=== PATIENT | male | born 1940 | race Caucasian/White ===

== ENCOUNTER 2017-01-07 23:06 | Emergency (ER) | payer OTHER ==
[~2017-01-07] VITALS: Ht 190.5 cm; Wt 106.2 kg
[~2017-01-07 23:06] MED LIST: CENTRUM SILVER1 EAC1 PO; COUMADIN PO; DILTIA XT120 MG PO; LANOXIN,DIGI0.125 MG PO; LEVOTHROID,S0.075 MG PO; METOPROLOL SUCC25 MG PO; PERCOCET 5/31 TABLET PO; PRAVASTATIN SOD80 MG PO; TYLENOL ARTHRI650 M2 PO
[2017-01-07 23:50] LABS: MCH 30.7 PG (29.0-34.0); MCHC 32.7 G/DL (30.0-36.0); MCV 93.8 FL (86-99); MEAN PLAT.VOLUME 9.6 uM^3 (9.0-12.4); PLATELET COUNT 156 K/uL (156-360); RBC DIS.WIDTH-CV 13.8 % (11.8-14.6); RED BLOOD COUNT 4.69 M/uL (4.00-5.50); WHITE BLOOD COUNT 10.9 K/uL (4.1-10.2)
[2017-01-07 23:59] LABS: CHLORIDE 106 mEq/L (99-109); POTASSIUM 4.2 mEq/L (3.7-5.4); SODIUM 142 mEq/L (136-147)
[2017-01-08 00:01] LABS: GLUCOSE 133 mg/dL (70-99)
[2017-01-08 00:02] LABS: ANION GAP 11 MEQ/L (2-14)
[2017-01-08 00:06] LABS: GFR ESTIMATE (CALCULATED) > 59 mL/min/; UREA NITROGEN (BUN) 15 mg/dL (9-23)
[2017-01-08 00:16] LABS: INTER. NORMALIZED RATIO 1.1; PROTHROMBIN TIME 11.2 (9.2-11.2); PTT 27.3 (25-32)
[2017-01-08 01:07] VITALS: BP 128/91
== END 2017-01-08 01:09 | disposition home or self-care (01) ==
LOC: EME 23:06 → RME 23:06
PROVIDERS: Physician Assistant
DX: K91.840 Postprocedural hemorrhage of a digestive system organ or structure following a digestive system procedure (principal); Z79.01 Long term (current) use of anticoagulants
CPT/HCPCS: 80048; 85027; 85610; 85730; 99281; 99284

== ENCOUNTER 2017-01-10 08:20 | Emergency (ER) | payer OTHER ==
[~2017-01-10] VITALS: Ht 190.5 cm; Wt 104.1 kg
[2017-01-10] MEDS ORDERED: CARDIZEM CD,CA240 MG PO (09:16)
[2017-01-10] MEDS ORDERED: XARELTO20 MG PO (09:16)
[2017-01-10] MEDS ORDERED: LANOXIN125 MCG PO (09:16)
[2017-01-10] MEDS ORDERED: OMEPRAZOLE20 MG PO (09:17)
[2017-01-10 09:22] LABS: HEMATOCRIT 43.1 % (38.0-50.0); MCH 30.7 PG (29.0-34.0); MCHC 32.7 G/DL (30.0-36.0); MCV 93.9 FL (86-99); MEAN PLAT.VOLUME 9.6 uM^3 (9.0-12.4); PLATELET COUNT 160 K/uL (156-360); RBC DIS.WIDTH-CV 13.2 % (11.8-14.6); RBC DIS.WIDTH-SD 45.1 % (39-53); RED BLOOD COUNT 4.59 M/uL (4.00-5.50)
[2017-01-10 09:32] LABS: WHITE BLOOD COUNT 6.6 K/uL (4.1-10.2)
[2017-01-10 09:37] LABS: INTER. NORMALIZED RATIO 1.5; PROTHROMBIN TIME 15.2 (9.2-11.2); PTT 36.6 (25-32)
[2017-01-10 10:25] VITALS: BP 132/88
== END 2017-01-10 10:25 | disposition home or self-care (01) ==
LOC: EME 08:20
PROVIDERS: Nurse Practitioner Family
DX: K91.840 Postprocedural hemorrhage of a digestive system organ or structure following a digestive system procedure (principal); Z98.818 Other dental procedure status; Z79.01 Long term (current) use of anticoagulants; E03.9 Hypothyroidism, unspecified
CPT/HCPCS: 85027; 85610; 85730; 99281; 99283

== ENCOUNTER 2017-01-11 21:27 | Emergency (ER) | payer OTHER ==
[~2017-01-11] VITALS: Ht 190.5 cm; Wt 103.9 kg
[~2017-01-11 21:27] MED LIST changes: +CARDIZEM CD,CA240 MG PO; +LANOXIN125 MCG PO; +OMEPRAZOLE20 MG PO; +XARELTO20 MG PO
[2017-01-12 03:04] VITALS: BP 142/92
== END 2017-01-12 03:05 | disposition home or self-care (01) ==
LOC: EME 21:27
DX: K91.840 Postprocedural hemorrhage of a digestive system organ or structure following a digestive system procedure (principal); Z98.818 Other dental procedure status; Y83.8 Other surgical procedures as the cause of abnormal reaction of the patient, or of later complication, without mention of misadventure at the time of the procedure
CPT/HCPCS: 99281; 99284

== ENCOUNTER 2017-01-13 23:09 | Emergency (ER) | payer OTHER ==
[~2017-01-13] VITALS: Ht 190.5 cm; Wt 103.7 kg
[2017-01-14 00:53] LABS: BASOPHIL COUNT 0.1 K/uL (0-0.1); EOSINOPHIL (%) 3.3 % (0-5); EOSINOPHIL COUNT 0.3 K/uL (0-0.3); HEMATOCRIT 42.1 % (38.0-50.0); IMMATURE GRANULOCYTE (%) 0.5 % (0.0-0.7); INSTRUMENT ABS NEUTROPHIL CT 5.7 K/uL; LYMPHOCYTE COUNT 1.9 K/uL (1.0-2.8); MCH 30.5 PG (29.0-34.0); MCHC 32.3 G/DL (30.0-36.0); MCV 94.4 FL (86-99); MEAN PLAT.VOLUME 9.8 uM^3 (9.0-12.4); MONOCYTE (%) 8.4 % (3-12); MONOCYTE COUNT 0.7 K/uL (0-0.8); NEUTROPHIL (%) 65.5 % (45-76); NEUTROPHIL COUNT 5.7 K/uL (1.8-6.4); PLATELET COUNT 172 K/uL (156-360); RBC DIS.WIDTH-CV 13.2 % (11.8-14.6); RBC DIS.WIDTH-SD 45.7 % (39-53); RED BLOOD COUNT 4.46 M/uL (4.00-5.50); WHITE BLOOD COUNT 8.7 K/uL (4.1-10.2)
[2017-01-14 01:00] LABS: PTT 29.4 (25-32)
[2017-01-14 01:01] LABS: CHLORIDE 104 mEq/L (99-109); POTASSIUM 4.4 mEq/L (3.7-5.4); SODIUM 141 mEq/L (136-147)
[2017-01-14 01:02] LABS: GLUCOSE 117 mg/dL (70-99)
[2017-01-14 01:04] LABS: ANION GAP 12 MEQ/L (2-14)
[2017-01-14 01:06] LABS: GFR ESTIMATE (CALCULATED) > 59 mL/min/
[2017-01-14 01:07] LABS: UREA NITROGEN (BUN) 18 mg/dL (9-23)
[2017-01-14 01:21] LABS: INTER. NORMALIZED RATIO 1.2; PROTHROMBIN TIME 12.1 (9.2-11.2)
[2017-01-14 03:06] VITALS: BP 111/85
== END 2017-01-14 03:08 | disposition home or self-care (01) ==
LOC: EME 23:09
PROVIDERS: Emergency Medicine
DX: K91.840 Postprocedural hemorrhage of a digestive system organ or structure following a digestive system procedure (principal); Y83.8 Other surgical procedures as the cause of abnormal reaction of the patient, or of later complication, without mention of misadventure at the time of the procedure; I10 Essential (primary) hypertension; K21.9 Gastro-esophageal reflux disease without esophagitis; Z87.442 Personal history of urinary calculi
CPT/HCPCS: 80048; 85025; 85610; 85730; 99281; 99284